=== PATIENT | male | born 1965 | race Caucasian/White ===

== ENCOUNTER 2022-12-06 10:45 | Emergency (ER) | payer OTHER, SELFPAY ==
[2022-12-06 10:50] VITALS: BP 162/84; PULSE 58; RESP 22; TEMP 36.4; O2SAT 97; BMI 36.9
--- NOTE | 2022-12-06 11:00 | PC.NURSE ---
Pain, redness and slight swelling to left lower leg. Patient denies injury to area and states it's been hurting for a few days and yesterday I was standing for long periods at football games .
--- NOTE | 2022-12-06 11:04 | US_ITS ---
The [address] [address] Patient Name: ALMA MULLEN MRN: [id number] date: 1965 Sex: M Assigned Patient Location: ER Current Patient Location: .[facility] Accession/Order Number: [id number] Exam Date: 12/06/2022 11:35 Report Date: 12/06/2022 12:27 At the request of: KAREN STEELE Procedure: US venous doppler LE LT LEFT LOWER EXTREMITY DEEP VENOUS ULTRASOUND WITH DOPPLER IMAGING CLINICAL HISTORY: Leg pain or tenderness. COMPARISON: None TECHNIQUE: Singh scale with compression maneuvers, Color Doppler and Spectral Doppler at rest and with augmentation of the left distal external iliac, common femoral, femoral and popliteal veins was performed. Edwards scale with compression maneuvers of the peroneal and posterior tibial veins was performed. The great and small saphenous veins were imaged in edwards scale with compression maneuvers at their insertion to the deep system. The contralateral external iliac vein and common femoral vein were imaged for comparison. Images were obtained and stored in a permanent archive. RESULT: LEFT LOWER EXTREMITY PROXIMAL DEEP VEINS Distal External Iliac and Common Femoral Veins: Compression: Normal Doppler: Normal, spontaneous respirophasic flow Normal response to augmentation Femoral vein: Compression: Normal Doppler: Normal, spontaneous flow Normal response to augmentation Popliteal vein: Compression: Normal Doppler: Normal, spontaneous flow Normal response to augmentation CALF DEEP VEINS Peroneal veins: Normal compression Posterior tibial veins: Normal compression Gastrocnemius and Soleal veins: Not imaged SUPERFICIAL VEINS Great saphenous: Patent and compressible at insertion into common femoral vein; not otherwise assessed. Small Saphenous: Patent and compressible in the proximal calf, not otherwise assessed. RIGHT LOWER EXTREMITY Distal External Iliac and Common Femoral Veins: Compression: Normal Doppler: Normal, spontaneous respirophasic flow Normal response to augmentation US/US venous doppler LE LT IMPRESSION: NEGATIVE STUDY FOR ACUTE PROXIMAL DVT IN THE LEFT LOWER EXTREMITY. NEGATIVE STUDY FOR ACUTE CALF DVT IN THE LEFT LOWER EXTREMITY. NEGATIVE STUDY FOR SUPERFICIAL THROMBOPHLEBITIS IN THE LEFT LOWER EXTREMITY Electronically authenticated by: MITCH JOHNSON Date: 12/06/2022 12:27
--- NOTE | 2022-12-06 11:05 | ED.SKABFB1 ---
HPI - Skin/Abscess/Foreign Bdy General Chief complaint: Skin/Abscess/Foreign Body Stated complaint: L LEG THINKS CELLULITIS Time Seen by Provider: 12/06/22 10:59 Source: patient Mode of arrival: walk-in Limitations: no limitations History of Present Illness HPI narrative: 57-year-old male presents for redness and swelling to his left lower leg that he's had for a few days. No injury. His is worried about a blood clot or cellulitis. He's never had a deep vein thrombosis. No chest pain or shortness of breath or fever. He recalls no injury. Related Data Previous Rx's Medication Instructions Recorded amoxicillin 875 mg-potassium 1 tab PO BID #20 tabs 12/06/22 clavulanate 125 mg tablet Allergies Allergy/AdvReac Type Severity Reaction Status Date / Time No Known Drug Allergies Allergy Verified 12/06/22 10:54 Review of Systems ROS Narrative A ten point review of systems is negative except as noted above. PFSH PFSH Social History Smoking status: Light tobacco smoker Exam Narrative Exam Narrative: Nurses note and vital signs reviewed and patient is not hypoxic. General: The patient appears well and in no apparent distress. Patient is resting comfortably on cart. Skin: Warm, dry, no pallor noted. There is no rash noted. Head: Normocephalic, atraumatic Eye: Normal conjunctiva, no drainage Ears, Nose, Mouth, and Throat: oral mucosa is moist. Nares patent. Cardiovascular: Regular Rate and Rhythm Respiratory: Patient is in no distress, no accessory muscle use, lungs are clear to auscultation, no wheezing, rales or rhonchi Back: non-tender GI: soft and nontender Musculoskeletal: he has erythema and mild swelling to the left lower leg distally and anteriorly. He doesn't seem to have any calf tenderness. He has two very small breaks in the skin on the anterior left lower leg as well. He does not know how those happened. No redness or swelling to the right leg. Neurological: A&O, normal speech Psychiatric: Cooperative Constitutional Vital Signs, click to edit/add: Last Vital Signs Temp 97.5 F L 12/06/22 10:50 Pulse 58 L 12/06/22 10:50 Resp 22 12/06/22 10:50 BP 162/84 H 12/06/22 10:50 Pulse Ox 97 12/06/22 10:50 O2 Del Method Room Air 12/06/22 10:50 Course Vital Signs Vital signs: Vital Signs Temperature 97.5 F L 12/06/22 10:50 Pulse Rate 58 L 12/06/22 10:50 Respiratory Rate 22 12/06/22 10:50 Blood Pressure 162/84 H 12/06/22 10:50 Pulse Oximetry 97 12/06/22 10:50 Oxygen Delivery Method Room Air 12/06/22 10:50 Temperature 97.5 F L 12/06/22 10:50 Pulse Rate 58 L 12/06/22 10:50 Respiratory Rate 22 12/06/22 10:50 Blood Pressure 162/84 H 12/06/22 10:50 Pulse Oximetry 97 12/06/22 10:50 Oxygen Delivery Method Room Air 12/06/22 10:50 MDM - Skin/Abscess/Foreign Bdy MDM Narrative Medical decision making narrative: Doppler is negative and blood work is unremarkable. He is given IV Ancef and prescribed Augmentin. My clinical impressions that he has cellulitis. Follow-up with PCP. Treatment diagnosis and follow up are discussed with the patient and his . Differential Diagnosis Differential diagnosis: Likely other (deep vein thrombosis, cellulitis) Lab Data Attestation: I reviewed the patient's lab results. Labs: Lab Results 12/06/22 Range/Units 11:10 WBC 6.9 (4.0-11.0) 10^3/uL RBC 4.27 L (4.70-6.10) 10^6/uL Hgb 14.6 (14.0-18.0) g/dL Hct 42.9 (42.0-54.0) % MCV 100.5 H (80.0-94.0) fL MCH 34.2 H (25.9-34.0) pg MCHC 34.0 (29.9-35.2) g/dL RDW 12.8 (11.0-15.0) % Plt Count 281 (150-450) 10^3/uL MPV 10.6 (9.5-13.5) fL Neut % (Auto) 60.7 (43.0-75.0) % Lymph % (Auto) 22.9 (20.5-60.0) % [place] % (Auto) 11.2 (1.7-12.0) % Eos % (Auto) 4.3 (0.9-7.0) % Baso % (Auto) 0.6 (0.2-2.0) % Neut # (Auto) 4.2 (1.4-6.5) 10^3/uL Lymph # (Auto) 1.6 (1.2-3.8) 10^3/uL [place] # (Auto) 0.8 (0.3-0.8) 10^3/uL Eos # (Auto) 0.3 (0.0-0.7) 10^3/uL Baso # (Auto) 0.0 (0.0-0.1) 10^3/uL Abs Immat Gran (auto) 0.02 (0.00-0.03) 10^3/uL Imm/Tot Granulo (auto) 0.3 (0.0-0.5) % Sodium 137 (136-145) mmol/L Potassium 4.5 (3.5-5.1) mmol/L Chloride 102 (98-107) mmol/L Carbon Dioxide 27.0 (21.0-32.0) mmol/L Anion Gap 12.5 BUN 17.0 (7.0-18.0) mg/dL Creatinine 0.97 (0.70-1.30) mg/dL Est GFR ( Amer) >60 (>=60) Est GFR (Non-Af Amer) >60 (>=60) BUN/Creatinine Ratio 17.5 Glucose 123 H (74-106) mg/dL Calcium 8.5 (8.5-10.1) mg/dL Discharge Plan Discharge Chief Complaint: Skin/Abscess/Foreign Body Clinical Impression: Cellulitis Patient Disposition: Home, Self-Care Time of Disposition Decision: 12:22 Condition: Good Mode of Transportation: Private Vehicle Prescriptions / Home Meds: New amoxicillin-pot clavulanate 875-125 mg tablet 1 tab PO BID Qty: 20 0RF Instructions: Cellulitis (ED) Stand Alone Forms: Portal Instructions Referrals: Feliciano Renteria MD [Primary Care Provider] - 1 week
[2022-12-06 11:27] LABS: Basophils Percent Auto 0.6 % (0.2-2.0); Eosinophils Absolute Auto 0.3 10^3/uL (0.0-0.7); Eosinophils Percent Auto 4.3 % (0.9-7.0); Hematocrit 42.9 % (42.0-54.0); Hemoglobin 14.6 g/dL (14.0-18.0); Immature Granulocytes Abs Auto 0.02 10^3/uL (0.00-0.03); Immature Granulocytes Pct Auto 0.3 % (0.0-0.5); Lymphocytes Absolute Auto 1.6 10^3/uL (1.2-3.8); Lymphocytes Percent Auto 22.9 % (20.5-60.0); Mean Corpuscular Hemoglobin 34.2 pg (25.9-34.0); Mean Corpuscular Volume 100.5 fL (80.0-94.0); Mean Platelet Volume 10.6 fL (9.5-13.5); Monocytes Absolute Auto 0.8 10^3/uL (0.3-0.8); Monocytes Percent Auto 11.2 % (1.7-12.0); Neutrophils Absolute Auto 4.2 10^3/uL (1.4-6.5); Neutrophils Percent Auto 60.7 % (43.0-75.0); Platelet Count 281 10^3/uL (150-450); Red Blood Count 4.27 10^6/uL (4.70-6.10); Red Cell Distribution Width 12.8 % (11.0-15.0); White Blood Count 6.9 10^3/uL (4.0-11.0)
[2022-12-06 11:30] LABS: Anion Gap 12.5; BUN Creatinine Ratio 17.5; Calcium 8.5 mg/dL (8.5-10.1); Chloride 102 mmol/L (98-107); Estimated GFR (African America >60 (>=60); Estimated GFR (Non-African Ame >60 (>=60); Glucose 123 mg/dL (74-106); Potassium 4.5 mmol/L (3.5-5.1); Sodium 137 mmol/L (136-145)
[2022-12-06] MEDS: CEFAZOLIN SODIUM/DEXTROSE,ISO 1 GM/50 ML IV.SOLN IV (12:24)
== END 2022-12-06 13:06 | disposition home or self-care (01) ==
PROVIDERS: Emergency Provider Emergency Medicine; PCP Family Medicine
DX: L03.116 Cellulitis of left lower limb (principal); F17.210 Nicotine dependence, cigarettes, uncomplicated
CPT/HCPCS: 36415; 80048; 85025; 93971; 96365; 99285

== ENCOUNTER 2022-12-28 15:28 | Outpatient (OUT) | payer OTHER, SELFPAY ==
[2022-12-28 15:59] LABS: Basophils Percent Auto 0.2 % (0.2-2.0); Hematocrit 45.6 % (42.0-54.0); Hemoglobin 15.8 g/dL (14.0-18.0); Immature Granulocytes Abs Auto 0.06 10^3/uL (0.00-0.03); Immature Granulocytes Pct Auto 0.5 % (0.0-0.5); Lymphocytes Absolute Auto 1.1 10^3/uL (1.2-3.8); Lymphocytes Percent Auto 8.8 % (20.5-60.0); Mean Corpuscular HGB Conc 34.6 g/dL (29.9-35.2); Mean Corpuscular Hemoglobin 33.8 pg (25.9-34.0); Mean Corpuscular Volume 97.4 fL (80.0-94.0); Mean Platelet Volume 10.8 fL (9.5-13.5); Monocytes Absolute Auto 0.8 10^3/uL (0.3-0.8); Monocytes Percent Auto 5.9 % (1.7-12.0); Neutrophils Absolute Auto 10.8 10^3/uL (1.4-6.5); Neutrophils Percent Auto 84.6 % (43.0-75.0); Platelet Count 312 10^3/uL (150-450); Red Blood Count 4.68 10^6/uL (4.70-6.10); Red Cell Distribution Width 12.5 % (11.0-15.0); White Blood Count 12.8 10^3/uL (4.0-11.0)
[2022-12-28 16:00] LABS: Estimated Average Glucose 126 mg/dL
[2022-12-28 16:33] LABS: Alanine Aminotransferase 53 U/L (16-63); Albumin Globulin Ratio 1.1; Alkaline Phosphatase 60 U/L (46-116); Anion Gap 17.4; Aspartate Amino Transferase 21 U/L (15-37); Bilirubin Total 0.6 mg/dL (0.2-1.0); Calcium 9.3 mg/dL (8.5-10.1); Carbon Dioxide 23.3 mmol/L (21.0-32.0); Chloride 101 mmol/L (98-107); Estimated GFR (African America >60 (>=60); Estimated GFR (Non-African Ame >60 (>=60); Globulin 3.5 g/dL; Glucose 136 mg/dL (74-106); Potassium 4.7 mmol/L (3.5-5.1); Sodium 137 mmol/L (136-145); Thyroid Stimulating Hormone 1.393 uIU/mL (0.358-3.740); Total Protein 7.5 g/dL (6.4-8.2)
[2022-12-29 11:11] LABS: Insulin 15.8 uIU/mL (2.6-24.9)
== END 2022-12-28 15:29 | disposition home or self-care (01) ==
LOC: LAB 15:29
PROVIDERS: PCP Family Medicine; Visit Provider Family Medicine
DX: R53.83 Other fatigue (principal)
CPT/HCPCS: 36415; 80053; 83036; 83525; 84436; 84443; 84481; 85025

== ENCOUNTER 2023-01-08 07:18 | Outpatient (OUT) | payer OTHER, SELFPAY ==
[2023-01-08 07:40] LABS: Basophils Absolute Auto 0.1 10^3/uL (0.0-0.1); Basophils Percent Auto 0.5 % (0.2-2.0); Eosinophils Absolute Auto 0.1 10^3/uL (0.0-0.7); Hematocrit 47.7 % (42.0-54.0); Hemoglobin 16.1 g/dL (14.0-18.0); Immature Granulocytes Abs Auto 0.13 10^3/uL (0.00-0.03); Lymphocytes Absolute Auto 2.2 10^3/uL (1.2-3.8); Lymphocytes Percent Auto 16.9 % (20.5-60.0); Mean Corpuscular HGB Conc 33.8 g/dL (29.9-35.2); Mean Corpuscular Hemoglobin 33.6 pg (25.9-34.0); Mean Corpuscular Volume 99.6 fL (80.0-94.0); Mean Platelet Volume 10.5 fL (9.5-13.5); Monocytes Absolute Auto 1.1 10^3/uL (0.3-0.8); Monocytes Percent Auto 8.8 % (1.7-12.0); Neutrophils Absolute Auto 9.3 10^3/uL (1.4-6.5); Neutrophils Percent Auto 71.8 % (43.0-75.0); Platelet Count 281 10^3/uL (150-450); Red Blood Count 4.79 10^6/uL (4.70-6.10); Red Cell Distribution Width 12.4 % (11.0-15.0); White Blood Count 12.9 10^3/uL (4.0-11.0)
[2023-01-08 07:45] LABS: Erythrocyte Sedimentation Rate 17 mm/hr (<=20)
[2023-01-08 08:19] LABS: Mono Screen NEGATIVE (NEGATIVE)
[2023-01-08 08:38] LABS: Alanine Aminotransferase 47 U/L (16-63); Albumin Globulin Ratio 1.1; Albumin Level 3.5 g/dL (3.4-5.0); Alkaline Phosphatase 45 U/L (46-116); Aspartate Amino Transferase 21 U/L (15-37); Bilirubin Total 1.2 mg/dL (0.2-1.0); Calcium 8.8 mg/dL (8.5-10.1); Carbon Dioxide 24.7 mmol/L (21.0-32.0); Chloride 102 mmol/L (98-107); Estimated GFR (African America >60 (>=60); Estimated GFR (Non-African Ame >60 (>=60); Globulin 3.2 g/dL; Glucose 81 mg/dL (74-106); Potassium 4.7 mmol/L (3.5-5.1); Sodium 137 mmol/L (136-145); Total Protein 6.7 g/dL (6.4-8.2)
[2023-01-11 16:09] LABS: EBV Ab VCA, IgM <36.0 U/mL (0.0-35.9)
== END 2023-01-08 07:19 | disposition home or self-care (01) ==
LOC: LAB 07:20
PROVIDERS: PCP Family Medicine; Visit Provider Family Medicine
DX: R53.83 Other fatigue (principal)
CPT/HCPCS: 36415; 80053; 85025; 85652; 86308

== ENCOUNTER 2023-01-18 15:50 | Outpatient (OUT) | payer OTHER, SELFPAY ==
[2023-01-20 08:15] LABS: Testosterone 249 ng/dL (264-916)
== END 2023-01-18 15:51 | disposition home or self-care (01) ==
LOC: LAB 15:50
PROVIDERS: PCP Family Medicine; Visit Provider Family Medicine
DX: R42 Dizziness and giddiness (principal)
CPT/HCPCS: 36415; 84403

== ENCOUNTER 2023-01-20 10:52 | Outpatient (OUT) | payer OTHER, SELFPAY ==
[2023-01-21 04:10] LABS: Testosterone 170 ng/dL (264-916)
== END 2023-01-20 10:53 | disposition home or self-care (01) ==
LOC: LAB 10:53
PROVIDERS: PCP Family Medicine; Visit Provider Family Medicine
DX: R53.83 Other fatigue (principal)
CPT/HCPCS: 36415; 84403

== ENCOUNTER 2023-02-02 06:13 | Outpatient (OUT) | payer OTHER, SELFPAY ==
--- NOTE | 2023-02-02 06:59 | MR_ITS ---
The [address] [address] Patient Name: ALMA MULLEN MRN: [id number] date: 1965 Sex: M Assigned Patient Location: MRI Current Patient Location: MRI Accession/Order Number: [id number] Exam Date: 02/02/2023 07:05 Report Date: 02/02/2023 08:21 At the request of: PAIGE KRAUSE Procedure: MR head/brain wo con EXAMINATION: MR head/brain wo con HISTORY: vertigo COMPARISON: No relevant comparison available. TECHNIQUE: A variety of imaging planes and parameters were utilized for visualization of suspected pathology. Images were performed without contrast. FINDINGS: CEREBRUM: No edema, hemorrhage, mass, acute infarction, or inappropriate atrophy. CEREBELLUM: No edema, hemorrhage, mass, acute infarction, or inappropriate atrophy. BRAINSTEM: No edema, hemorrhage, mass, acute infarction, or inappropriate atrophy. CSF SPACES: Ventricles, cisterns, and sulci are appropriate for age. No hydrocephalus, subarachnoid hemorrhage, or mass. SKULL: No mass or other significant visible lesion. SINUSES: Limited views demonstrate no significant mucosal thickening or fluid. ORBITS: Limited views are unremarkable. OTHER: Negative. MR/MR head/brain wo con IMPRESSION: 1. No abnormal findings of the brain to account for patient's symptoms. 2. No appreciable fluid or soft tissue within the middle ear or mastoid air cells. Electronically authenticated by: ALMA CAVAZOS Date: 02/02/2023 08:21
== END 2023-02-02 06:14 | disposition home or self-care (01) ==
LOC: MRI 06:14
PROVIDERS: PCP Family Medicine; Visit Provider Family Medicine
DX: R42 Dizziness and giddiness (principal)
CPT/HCPCS: 70551

== ENCOUNTER 2023-03-06 19:57 | Emergency (ER) | payer SELFPAY ==
[2023-03-06 20:01] VITALS: BP 134/87; PULSE 84; RESP 18; TEMP 37.1; O2SAT 96; BMI 33.5
--- OUTSIDE RECORDS SUMMARY | 2023-03-06 20:04 | XMS_ITS | CCD ---
Author Name Unknown Address [address] [place] [address] Organization [facility] Care Team Providers Care Elastic Attacher Coverstitch Name Role Phone PAIGE RENTERIA Primary Care Unavailable KAREN STEELE Admitting Unavailable KAREN STEELE Attending Unavailable KARMA ACOSTA Consulting Unavailable OMKAR BUSBY Consulting Unavailable PAIGE RENTERIA Admitting Unavailable PAIGE RENTERIA Attending Unavailable PAIGE RENTERIA Consulting Unavailable Results Test Name Value Interpretation Reference Range Facility CBC AUTO DIFFon 05-25-2022 BASO # 0.0 103/ul Normal 0.0-0.[address] [facility] Comment on above: Performed By: #### C BC #### [facility] [address] [place] [address] Dr. Cheng Dinero Basophils/100 WBC (Bld) 0.4 % Normal 0.2-2.[address] [facility] Comment on above: Performed By: #### C BC #### [facility] [address] [place] [address] Dr. Cheng Dinero EO # 0.1 103/ul Normal 0.0-0.7 [facility] Comment on above: Performed By: #### C BC #### [facility] [address] [address] [address] Cheng Dinero Eosinophils/100 WBC (Bld) 1.0 % Normal 0.9-7.0 [facility] Comment on above: Performed By: #### C BC #### [facility] [address] [place] [address] Dr. Cheng Dinero Erythrocyte distribution width (RBC) [Ratio] 12.7 % Normal 11.0-15.[address] [facility] Comment on above: Performed By: #### C BC #### [facility] [address] [place] [address] Dr. Cheng Dinero Hematocrit (Bld) [Volume fraction] 42.7 % Normal 42.0-54.[address] [facility] Comment on above: Performed By: #### C BC #### [facility] [address] [place] [address] Dr. Cheng Dinero Hemoglobin (Bld) [Mass/Vol] 14.8 g/dL Normal 14.0-18.0 [facility] Comment on above: Performed By: #### C BC #### [facility] [address] [place] [address] Dr. Cheng Dinero IG # 0.03 10e3/ul Normal 0.00-0.[address] [facility] Comment on above: Performed By: #### C BC #### [facility] [address] [place] [address] Dr. Cheng Dinero IG % 0.4 % Normal 0.0-0.[address] [facility] Comment on above: Performed By: #### C BC #### [facility] [address] [place] [address] Dr. Cehng Dinero LYMPH # 1.2 103/ul Normal 1.2-3.8 [facility] Comment on above: Performed By: #### C BC #### [facility] [address] [place] [address] Dr. Cheng Dinero Lymphocytes/100 WBC (Bld) 16.1 % Critically low 20.5-60.[address] [facility] Comment on above: Performed By: #### C BC #### [facility] [address] [place] [address] Dr. Cheng Dinero MANUAL DIFF REQ NO Normal [facility] Comment on above: Performed By: #### C BC #### [facility] [address] [place] [address] Dr. Cheng Dinero MCH (RBC) [Entitic mass] 32.9 pg Normal 25.9-34.[address] [facility] Comment on above: Performed By: #### C BC #### [facility] [address] [place] [address] Dr. Cheng Dinero MCHC (RBC) [Mass/Vol] 34.7 g/dL Normal 29.9-35.[address] [facility] Comment on above: Performed By: #### C BC #### [facility] [address] [place] [address] Dr. Cheng Dinero MCV (RBC) [Entitic vol] 94.9 fL Critically high 80.0-94.[address] [facility] Comment on above: Performed By: #### C BC #### [facility] [address] [address] [address] Cheng Dinero MONO # 0.7 103/ul Normal 0.3-0.[address] [facility] Comment on above: Performed By: #### C BC #### [facility] [address] [place] [address] Dr. Cheng Dinero Monocytes/100 WBC (Bld) 10.4 % Normal 1.7-12.[address] [facility] Comment on above: Performed By: #### C BC #### [facility] [address] [place] [address] Dr. Cheng Dinero NEUT # 5.1 103/ul Normal 1.4-6.[address] [facility] Comment on above: Performed By: #### C BC #### [facility] [address] [place] [address] Dr. Cheng Dinero Neutrophils/100 WBC (Bld) 71.7 % Normal 43.0-75.[address] [facility] Comment on above: Performed By: #### C BC #### [facility] [address] [place] [address] Dr. Cheng Dinero Platelet mean volume (Bld) [Entitic vol] 10.2 fL Normal 9.5-13.5 [facility] Comment on above: Performed By: #### C BC #### [facility] [address] [place] [address] Dr. Cheng Dinero PLT 254 103/ul Normal 150-450 [facility] Comment on above: Performed By: #### C BC #### [facility] [address] [place] [address] Dr. Cheng Dinero RBC 4.50 106/ul Critically low 4.70-6.10 [facility] Comment on above: Performed By: #### C BC #### [facility] [address] [place] [address] Dr. Cheng Dinero WBC 7.1 103/ul Normal 4.0-11.[address] [facility] Comment on above: Performed By: #### C BC #### [facility] [address] [place] [address] Dr. Cheng Dinero PROF CHEM 8 (BAS METB)on Anion gap [Moles/Vol] 13.0 mmol/L Normal [facility] Comment on above: Performed By: #### B MP #### [facility] [address] [place] [address] Dr. Cheng Dinero Calcium [Mass/Vol] 8.6 mg/dL Normal 8.5-10.1 [facility] Comment on above: Performed By: #### B MP #### [facility] [address] [place] [address] Dr. Cheng Dinero Chloride [Moles/Vol] 102 mmol/L Normal 98-[address] [facility] Comment on above: Performed By: #### B MP #### [facility] [address] [place] [address] Dr. Cheng Dinero CO2 [Moles/Vol] 26.7 mmol/L Normal 21.0-32.0 [facility] Comment on above: Performed By: #### B MP #### [facility] [address] [place] [address] Dr. Cheng Dinero Creatinine [Mass/Vol] 1.18 mg/dL Normal 0.70-1.[address] [facility] Comment on above: Performed By: #### B MP #### [facility] [address] [place] [address] Dr. Cheng Dinero EGFR-AF ZAMBIAN >60 Normal >=60 [facility] Comment on above: Performed By: #### B MP #### [facility] [address] [place] [address] Dr. Cheng Dinero EGFR-NON AF ZAMBIAN >60 Normal >=[address] [facility] Comment on above: Performed By: #### B MP #### [facility] [address] [address] [address] Cheng Dinero Glucose [Mass/Vol] 156 mg/dL Critically high 74-106 [facility] Comment on above: Performed By: #### B MP #### [facility] [address] [address] [address] Cheng Dinero Potassium [Moles/Vol] 4.7 mmol/L Normal 3.5-5.[address] [facility] Comment on above: Performed By: #### B MP #### [facility] [address] [address] [address] Cheng Dinero Sodium [Moles/Vol] 137 mmol/L Normal 136-145 [facility] Comment on above: Performed By: #### B MP #### [facility] [address] [address] [address] Cheng Dinero Urea nitrogen [Mass/Vol] 24.0 mg/dL Critically high 7.0-18.[address] [facility] Comment on above: Performed By: #### B MP #### [facility] [address] [address] [address] Cheng Dinero Urea nitrogen/Creatinine [Mass ratio] 20.3 mg/mg Normal [facility] Comment on above: Performed By: #### B MP #### [facility] [address] [address] [address] Cheng Dinero XR FOREARM LT 2 VIEWSon 05-09 XR FOREARM LT 2 VIEWS EXAM: XR FOREARM L T 2 VIEWS HISTORY: Traumatic AND/OR non-traumatic injury COMPARISON: None. TECHNIQUE: Frontal and lateral views of the left forearm FINDINGS/ IMPRESSION: 1. Normal mineralization. 2. No acute fractures or dislocations. Old ulnar styloid process fracture. 3. Mild degenerative changes at the DRUJ with subchondral cystic change of the distal ulna. Additional degenerative changes of the first CMC joint. 4. Common extensor origin enthesophytosis at the elbow. Electronically authenticated by: KARMA ACOSTA Date: 2022-05-25 17:[address] [facility] INSULINon 04-16-2022 Insulin 10.4 uIU/mL Normal 2.6-24.9 [facility] Comment on above: Performed By: #### I NSULIN #### [facility] [address] [place] [address] Dr. Cheng Dinero BNPon 04-15-2022 Natriuretic peptide B (Bld) [Mass/Vol] 21.0 pg/mL Normal <=900.0 [facility] Comment on above: Performed By: #### C MP, BNP, LIPID, T7, TSH ####[facility] [address] [address]Dr. Cheng Dinero CBC AUTO DIFFon 04-15-2022 BASO # 0.1 103/ul Normal 0.0-0.[address] [facility] Comment on above: Performed By: #### C BC #### [facility] [address] [place] [address] Dr. Cheng Dinero Basophils/100 WBC (Bld) 0.5 % Normal 0.2-2.[address] [facility] Comment on above: Performed By: #### C BC #### [facility] [address] [place] [address] Dr. Cheng Dinero EO # 0.2 103/ul Normal 0.0-0.7 [facility] Comment on above: Performed By: #### C BC #### [facility] [address] [place] [address] Dr. Cheng Dinero Eosinophils/100 WBC (Bld) 1.7 % Normal 0.9-7.0 [facility] Comment on above: Performed By: #### C BC #### [facility] [address] [place] [address] Dr. Cheng Dinero Erythrocyte distribution width (RBC) [Ratio] 11.9 % Normal 11.0-15.0 [facility] Comment on above: Performed By: #### C BC #### [facility] [address] [place] [address] Dr. Cheng Dinero Hematocrit (Bld) [Volume fraction] 44.2 % Normal 42.0-54.0 [facility] Comment on above: Performed By: #### C BC #### [facility] [address] [address] [address] Cheng Dinero Hemoglobin (Bld) [Mass/Vol] 15.3 g/dL Normal 14.0-18.[address] [facility] Comment on above: Performed By: #### C BC #### [facility] [address] [address] [address] Cheng Dinero IG # 0.08 10e3/ul Critically high 0.00-0.03 [facility] Comment on above: Performed By: #### C BC #### [facility] [address] [address] [address] Cheng Dinero IG % 0.7 % Critically high 0.0-0.5 [facility] Comment on above: Performed By: #### C BC #### [facility] [address] [place] [address] Dr. Cheng Dinero LYMPH # 2.6 103/ul Normal 1.2-3.8 [facility] Comment on above: Performed By: #### C BC #### [facility] [address] [place] [address] Dr. Chneg Dinero Lymphocytes/100 WBC (Bld) 23.2 % Normal 20.5-60.[address] [facility] Comment on above: Performed By: #### C BC #### [facility] [address] [place] [address] Dr. Cheng Dinero MANUAL DIFF REQ NO Normal [facility] Comment on above: Performed By: #### C BC #### [facility] [address] [place] [address] Dr. Cheng Dinero MCH (RBC) [Entitic mass] 32.8 pg Normal 25.9-34.[address] [facility] Comment on above: Performed By: #### C BC #### [facility] [address] [place] [address] Dr. Cheng Dinero MCHC (RBC) [Mass/Vol] 34.6 g/dL Normal 29.9-35.2 [facility] Comment on above: Performed By: #### C BC #### [facility] [address] [address] [address] Cheng Dinero MCV (RBC) [Entitic vol] 94.8 fL Critically high 80.0-94.[address] [facility] Comment on above: Performed By: #### C BC #### [facility] [address] [place] [address] Dr. Cheng Dinero MONO # 1.0 103/ul Critically high 0.3-0.8 [facility] Comment on above: Performed By: #### C BC #### [facility] [address] [place] [address] Dr. Cheng Dinero Monocytes/100 WBC (Bld) 9.1 % Normal 1.7-12.0 [facility] Comment on above: Performed By: #### C BC #### [facility] [address] [place] [address] Dr. Cheng Dinero NEUT # 7.2 103/ul Critically high 1.4-6.5 [facility] Comment on above: Performed By: #### C BC #### [facility] [address] [place] [address] Dr. Cheng Dinero Neutrophils/100 WBC (Bld) 64.8 % Normal 43.0-75.0 [facility] Comment on above: Performed By: #### C BC #### [facility] [address] [place] [address] Dr. Cheng Dinero Platelet mean volume (Bld) [Entitic vol] 10.4 fL Normal 9.5-13.5 [facility] Comment on above: Performed By: #### C BC #### [facility] [address] [place] [address] Dr. Cheng Dinero PLT 294 103/ul Normal 150-450 [facility] Comment on above: Performed By: #### C BC #### [facility] [address] [place] [address] Dr. Cheng Dinero RBC 4.66 106/ul Critically low 4.70-6.10 [facility] Comment on above: Performed By: #### C BC #### [facility] [address] [place] [address] Dr. Cheng Dinero WBC 11.0 103/ul Normal 4.0-11.[address] [facility] Comment on above: Performed By: #### C BC #### [facility] [address] [place] [address] Dr. Cheng Dinero FREE THYROXINE INDEX T7on FTI 3.16 Normal 1.30-4.[address] [facility] Comment on above: Performed By: #### C MP, BNP, LIPID, T7, TSH #### [facility] [address] [place] [address] Dr. Cheng Dinero T3U 40.0 % Normal 33.0-40.[address] [facility] Comment on above: Performed By: #### C MP, BNP, LIPID, T7, TSH #### [facility] [address] [place] [address] Dr. Cheng Dinero T4 [Mass/Vol] 7.90 ug/dL Normal 4.50-12.10 [facility] Comment on above: Performed By: #### C MP, BNP, LIPID, T7, TSH #### [facility] [address] [place] [address] Dr. Cheng Dinero GLYCOHEMOGLOBIN A1Con 2022 ADA RECOMMENDATION SEE BELOW Normal [facility] Comment on above: Result Comment: ADA RECOMMENDED LIMIT 4.0 - 6.0 ADA THERAPEUTIC TARGET < 7.0 ACTION SUGGESTED > 7.0 Performed By: #### A 1C #### [facility] [address] [place] [address] Dr. Cheng Dinero Glucose [Mass/Vol] 183 mg/dL Normal [facility] Comment on above: Performed By: #### A 1C #### [facility] [address] [place] [address] Dr. Cheng Dinero HbA1c (Bld) [Mass fraction] 8.0 % Critically high 4.5-6.[address] [facility] Comment on above: Performed By: #### A 1C #### [facility] [address] [place] [address] Dr. Cheng Dinero IRONon 04-15-2022 Iron [Mass/Vol] 228.0 ug/dL Critically high 65.0-175.[address] [facility] Comment on above: Performed By: #### P SASC, VITAD, IRON #### [facility] [address] [place], [place] [address] Dr. Cheng Dinero LIPID PROFILEon 04-15-2022 CHOL-HDL RATIO NORM SEE BELOW Normal [facility] Comment on above: Result Comment: 3.3 - 4.4 LOW RISK 4.4 - 7.1 AVERAGE RISK 7.1 - 11.0 MODERATE RISK >11.0 HIGH RISK Performed By: #### C MP, BNP, LIPID, T7, TSH ####[facility] [address] [id number]. Cheng Dinero Cholesterol [Mass/Vol] 169 mg/dL Normal <=[address] [facility] Comment on above: Performed By: #### C MP, BNP, LIPID, T7, TSH ####[facility] [address] [id number]. Cheng Dinero Cholesterol in HDL [Mass/Vol] 47 mg/dL Normal 40-[address] [facility] Comment on above: Performed By: #### C MP, BNP, LIPID, T7, TSH ####[facility] [address] [address]Dr. Cheng Dinero Cholesterol in LDL [Mass/Vol] 102.6 mg/dL Normal [facility] Comment on above: Performed By: #### C MP, BNP, LIPID, T7, TSH ####[facility] [address] [id number]. Cheng Dinero Cholesterol.total/Cho lesterol in HDL [Mass ratio] 3.6 {ratio} Normal [facility] Comment on above: Performed By: #### C MP, BNP, LIPID, T7, TSH ####[facility] [address] [id number]. Cheng Dinero HDL NORMAL > or = 60 mg/dl - LO W CARDIOVASCULAR RISK <40 mg/dl - HIGH CARDIOVASCULAR RISK Normal [facility] Comment on above: Performed By: #### C MP, BNP, LIPID, T7, TSH ####[facility] [address] [address]Dr. Cheng Dinero LDL CALC NORMAL SEE BELOW Normal [facility] Comment on above: Result Comment: <100 mg/dl OPTIMAL 100 - 129 mg/dl NEAR OR ABOVE OPTIMAL 130 - 159 mg/dl BORDERLINE HIGH 160 - 189 mg/dl HIGH >190 mg/dl VERY HIGH Performed By: #### C MP, BNP, LIPID, T7, TSH ####[facility] [address] [address]Dr. Cheng Dinero Triglyceride [Mass/Vol] 97 mg/dL Normal <=[address] [facility] Comment on above: Performed By: #### C MP, BNP, LIPID, T7, TSH ####[facility] [address] [address]Dr. Cheng Dinero VLDL CALC 19.4 mg/dL Normal [facility] Comment on above: Performed By: #### C MP, BNP, LIPID, T7, TSH ####[facility] [address] [address]Dr. Cheng Dinero PROF 14(COMP METB)on 023 Albumin [Mass/Vol] 3.5 g/dL Normal 3.4-5.0 [facility] Comment on above: Performed By: #### C MP, BNP, LIPID, T7, TSH ####[facility] [address] [address]Dr. Cheng Dinero Albumin/Globulin [Mass ratio] 1.2 {ratio} Normal [facility] Comment on above: Performed By: #### C MP, BNP, LIPID, T7, TSH ####[facility] [address] [address]Dr. Cheng Dinero ALP [Catalytic activity/Vol] 64 U/L Normal 46-116 [facility] Comment on above: Performed By: #### C MP, BNP, LIPID, T7, TSH ####[facility] [address] [address]Dr. Cheng Dinero ALT [Catalytic activity/Vol] 54 U/L Normal 16-[address] [facility] Comment on above: Performed By: #### C MP, BNP, LIPID, T7, TSH ####[facility] [address] [address]Dr. Cheng Dinero Anion gap [Moles/Vol] 9.8 mmol/L Normal [facility] Comment on above: Performed By: #### C MP, BNP, LIPID, T7, TSH ####[facility] [address] [address]Dr. Cheng Dinero AST [Catalytic activity/Vol] 22 U/L Normal 15-37 [facility] Comment on above: Performed By: #### C MP, BNP, LIPID, T7, TSH ####[facility] [address] [address]Dr. Cheng Dinero Bilirubin [Mass/Vol] 0.7 mg/dL Normal 0.2-1.[address] [facility] Comment on above: Performed By: #### C MP, BNP, LIPID, T7, TSH ####[facility] [address] [address]Dr. Cheng Dinero Calcium [Mass/Vol] 8.9 mg/dL Normal 8.5-10.1 [facility] Comment on above: Performed By: #### C MP, BNP, LIPID, T7, TSH ####[facility] [address] [address]Dr. Cheng Dinero Chloride [Moles/Vol] 102 mmol/L Normal 98-[address] [facility] Comment on above: Performed By: #### C MP, BNP, LIPID, T7, TSH ####[facility] [address] [address]Dr. Cheng Dinero CO2 [Moles/Vol] 27.9 mmol/L Normal 21.0-32.0 [facility] Comment on above: Performed By: #### C MP, BNP, LIPID, T7, TSH ####[facility] [address] [address]Dr. Cheng Dinero Creatinine [Mass/Vol] 0.96 mg/dL Normal 0.70-1.[address] [facility] Comment on above: Performed By: #### C MP, BNP, LIPID, T7, TSH ####[facility] [address] [address]Dr. Cheng Dinero EGFR-AF ZAMBIAN >60 Normal >=60 [facility] Comment on above: Performed By: #### C MP, BNP, LIPID, T7, TSH ####[facility] [address] [address]Dr. Cheng Dinero EGFR-NON AF ZAMBIAN >60 Normal >=[address] [facility] Comment on above: Performed By: #### C MP, BNP, LIPID, T7, TSH ####[facility] [address] [address]Dr. Cheng Dinero Globulin (S) [Mass/Vol] 3.0 g/dL Normal [facility] Comment on above: Performed By: #### C MP, BNP, LIPID, T7, TSH ####[facility] [address] [address]Dr. Cheng Dinero Glucose [Mass/Vol] 135 mg/dL Critically high 74-106 [facility] Comment on above: Performed By: #### C MP, BNP, LIPID, T7, TSH ####[facility] [address] [address]Dr. Cheng Dinero Potassium [Moles/Vol] 4.7 mmol/L Normal 3.5-5.[address] [facility] Comment on above: Performed By: #### C MP, BNP, LIPID, T7, TSH ####[facility] [address] [address]Dr. Cheng Dinero Protein [Mass/Vol] 6.5 g/dL Normal 6.4-8.2 [facility] Comment on above: Performed By: #### C MP, BNP, LIPID, T7, TSH ####[facility] [address] [address]Dr. Cheng Dinero Sodium [Moles/Vol] 135 mmol/L Critically low 136-145 [facility] Comment on above: Performed By: #### C MP, BNP, LIPID, T7, TSH ####[facility] [address] [address]Dr. Yikate Dinero Urea nitrogen [Mass/Vol] 30.0 mg/dL Critically high 7.0-18.[address] [facility] Comment on above: Performed By: #### C MP, BNP, LIPID, T7, TSH ####[facility] [id number] [id number]. Cheng Dinero Urea nitrogen/Creatinine [Mass ratio] 31.2 mg/mg Normal [facility] Comment on above: Performed By: #### C MP, BNP, LIPID, T7, TSH ####[facility] [id number] [place] [id number]. Cheng Dinero TSHon 04-15-2022 TSH 2.003 uIU/mL Normal 0.358-3.740 [facility] Comment on above: Performed By: #### C MP, BNP, LIPID, T7, TSH ####[facility] [id number] [id number]. Cheng Dinero VITAMIN D 25 OHon 04-15-2022 VIT D 25-OH 19.7 ng/mL Normal [facility] Comment on above: Performed By: #### P SASC, VITAD, IRON #### [facility] [address] [address] [address] Cheng Dinero VIT D RANGES SEE BELOW Normal [facility] Comment on above: Result Comment: <20 ng/mL Vit D deficient 20 - <30 ng/mL Vit D insufficient 30 - 100 ng/mL Vit D sufficient >100 ng/mL Potential Toxicity Performed By: #### P SASC, VITAD, IRON #### [facility] [address] [address] [address] Cheng Dinero Outside Colonoscopyon 2021 Outside Colonoscopy [id number]. 00CD:127 Normal [facility] Reminderson 05-01-2021 Reminders - From: Rose Mary Martinez LPN To: GSN - Clinical; Sent: 05/01/2021 10:24:02 EDT Show up: 04/02/2031 07:00:00 EST Subject: colonoscopy recall Due Date/Time: 05/01/2031 07:00:00 EDT Reminder/Recall Patient is due for screening colonoscopy 05/01/2031. [facility] Consent for Procedure/Surger yon 04-22-2021 Consent for Procedure/Surgery [id number] .[id number]:127 [facility] Pre-Certification Formon Pre-Certification Form [id number]# 1.00CD:127 [facility] Ambulatory Visit Summaryon 0 04-18-2021 Ambulatory Visit Summary ALMA MULLEN :1965 Visit Date:04/18/2021 Ambulatory Visit Instructions Your Care Team Attending Physician - CALI GUAJARDO, Sourav Phillips Primary Care Physician - Paige Renteria MD Referring Physician - Paige Renteria MD This Is Your Medications List Contact prescribing physician if questions or concerns diclofenac topical (diclofenac Top 1% gel) lisinopril (lisinopril 20 mg Tab) Procedures Performed Bone graft, History of hernia repair, Tonsillectomy and adenoidectomy, Vasectomy. Discharge Vitals Temperature (Temporal Artery) 36.3 ?C Heart Rate (Peripheral) 72 Respiratory Rate 16 Blood Pressure 124/82 Height 170.18 cm Height 170.2 cm Weight 108.9 kg Weight 108.9 kg BMI 37.6 Medications What How Much When Instructions Unchanged diclofenac topical (diclofenac Top 1% gel) 2 Gram Topical 2 times a day to affected areas Contact prescribing physician if questions or concerns Unchanged lisinopril (lisinopril 20 mg Tab) 1 Tablets By Mouth Every day Contact prescribing physician if questions or concerns Allergies No Known Allergies No Known Medication Allergies Problems Ongoing - Any problem that you are currently receiving treatment for. Astigmatism, regular BMI 37.0-37.9, adult Chronic cystitis with hematuria Chronic GERD Controlled diabetes mellitus DDD (degenerative disc disease), cervical Deficiency, protein C Diverticulitis of colon without hemorrhage Headache, migraine History of TIA (transient ischemic attack) Impingement syndrome of shoulder Internal derangement of knee Malignant essential hypertension Presbyopia Sleep apnea [facility] Historical Records Officeon 04-17-2021 Historical Records Office [id number] .[id number]:127 Normal [facility] Physician Referralon 022 Physician Referral [id number] .[id number]:127 Normal [facility] Encounters Encounter Date Encounter Type Care Provider Facility Start: 05-25-2022 End: 05-25-2022 ambulatory PAIGE HOY Facility:[facility] Start: 04-18-2022 Encounter for genera l adult medical examination without abnormal findings PAIGE HOY [facility] Start: 04-15-2022 End: 04-16-2022 ambulatory PAIGE HOY Facility:[facility] Start: 04-15-2022 End: 04-16-2022 Encounter for general adult medical examination without abnormal findings PAIGE HOY Facility:[facility] Procedures Date Procedure Procedure Detail Performing Clinician Start: 04-15-2022 PSA screening PAIGE H OY Comment on above: Performed By: #### P SASC, VITAD, IRON #### [facility] [address] [place] [address] Dr. Cheng Dinero Payers Date Payer Category Payer Unknown [id number] 1965 Unknown [id number] 1959 Unknown [id number] Clinical Note 04-20-2021 Note Date & Type Note Facility 04-20-2021 Note Chief Complaint consultation for left inguinal hernia and colonoscopy HPI Staff 55 year old male presents on consultation from Dr. Renteria for left inguinal hernia and screening colonoscopy. Denies abdominal or rectal pain. No rectal bleeding or change in bowel habits. No nausea or vomiting. No unexplained weight loss. Never had colonoscopy in the past. Reports several year history of left testicular pain. States this was evaluated by a physician years ago after US completed, report is not available at this time. History of Present Illness 55 yo male with h/o htn, sleep apnea; referred for possible LIH and colorectal screening; patient has had chronic intermittent left groin pain/testicular pain, no relationship to activity; denies bulge in area; had ED evaluation 4 years ago; had US that revealed possible small hernia with straining, small hydroceles bilaterally; patient has had a vasectomy; abdominal surgery significant for hernia repair as a child, unsure of what type of hernia; no change in bms or blood in stools; no asa, takes Diclofenac daily, no SBE prophylaxis; no previous colonoscopy; denies fmhx of GI malignancy or IBD; chews tobacco daily. Review of Systems PHQ Score Initial Depression Screen Score: 0 ROS - Provider Constitutional: no fever, no sweats, no weight loss. Eyes: no glasses, no blurred vision, no visual loss. ENMT: no dentures, no hoarseness, no swallowing difficulties, no hearing loss, no ear infection(s), no nose bleeds. Cardiovascular: normal blood pressure, no chest pain, regular heartbeat, no heart murmur. Respiratory: no shortness of breath, no cough, no asthma, no wheezing. Gastrointestinal: no nausea, no vomiting, no diarrhea, no constipation, no blood in stool, no change in bowel habits, no abdominal pain, no hepatitis. Genitourinary: no kidney stones, no urine infection, no dysuria. Musculoskeletal: yes pain, no weakness. Skin: no changing moles, no rash, no skin lumps. Neurologic: no seizures, no epilepsy, no headache. Psychiatric: no emotional or psychiatric problem. Heme/Lymph: no bleeding problems, no anemia, no blood clots, no transfusions. Allergy/Immunologic: no swollen lymph nodes/glands, no IV drug abuse. Other: Additional ROS info: Except as noted in the above Review of Systems and in the History of Present Illness, all other systems have been reviewed and are negative or noncontributory. Physical Exam Vitals & Measurements T: 36.3 ?C(Temporal Artery) HR: 72(Peripheral) RR: 16 BP: 124/82 HT: 170.18 cm HT: 170.2 cm WT: 108.9 kg WT: 108.9 kg BMI: 37.6 HEENT: normal conjunctiva, sclera clear, no scleral icterus, EOM intact, PERRLA, oral mucosa moist without lesions. Neck: trachea midline, no mass, symmetric, no thyromegaly or nodules, no adenopathy Respiratory: lungs CTA, respirations non labored. Cardiovascular: regular rate and rhythm, no murmur, no pedal edema or varicosities. Gastrointestinal: obese, soft, non distended, mild tenderness, left inguinal area; no enlargement of left external inguinal ring, no tenderness of cord structures or significant hydroceles; no palpable hernia sac no masses, no palpable hernias, diastasis recti yes, no hepatosplenomegaly; normal bs Lymphatic: no cervical adenopathy, , no inguinal adenopathy. Musculoskeletal: normal gait, digits and nails without infection, nodes, cyanosis, clubbing. Skin: no rashes, no lesions, no ulcers, no subcutaneous nodules, induration. Psychiatric/Neuro: oriented to time, place, person, judgement normal, affect appropriate for age, insight intact, no focal deficits. Tests: , x-rays reviewed, review of old records completed, Discussed surgical options, risks, and possible complications with patient. Assessment/Plan 1. Groin pain, chronic, left (R10.32: Left lower quadrant pain) no evidence of hernia on exam, likely musculoskeletal; if persists or worsens, may require pelvic ct scan. 2. Testicular pain, left (N50.812: Left testicular pain) see # 1; possibly postvasectomy pain. 3. Screening for malignant neoplasm of colon (Z12.11: Encounter for screening for malignant neoplasm of colon) plan colonoscopy under anesthesia, informed consent obtained. Other chronic pain (G89.29: Other chronic pain) Follow-up No qualifying data available Problem List/Past Medical History Ongoing Astigmatism, regular BMI 37.0-37.9, adult Chronic cystitis with hematuria Chronic GERD Controlled diabetes mellitus DDD (degenerative disc disease), cervical Deficiency, protein C Diverticulitis of colon without hemorrhage Groin pain, chronic, left Headache, migraine History of TIA (transient ischemic attack) Impingement syndrome of shoulder Internal derangement of knee Malignant essential hypertension Presbyopia Screening for malignant neoplasm of colon Sleep apnea Testicular pain, left Historical No qualifying data Procedure/Surgical History Bone graft, History of hernia repair, Tonsillectomy an (more content not included)... [facility] Comment on above: Result Comment: Elec tronically Signed By: CALI GUAJARDO, Sourav Rodriguez\Date and Time Signed: 04/20/21 09:57 EDT Summary Purpose Family History No Family History Records FoundNo Family History Records Found Advance Directives No Advanced Directives Records FoundNo Advanced Directives Records Found Additional Source Comments (unrecognized sect ion and content) No Status Records FoundNo Status Records Found INFORMATION SOURCE (unrecogn ized section and content) DATE CREATED AUTHOR 05/11/2021 Crhistiano Mays [facility] DATE CREATED AUTHOR AUTHOR'S SARAH ATMICA 05/26/2022 [facility] FOR RECORDS PERTAINING TO PATIENTS WHO ARE OR HAVE BEEN ENROLLED IN A CHEMICAL DEPENDENCY/SUBSTANCEABUSE PROGRAM, SOME INFORMATION MAY BE OMITTED. This clinical summary was aggregated from multiple sources. Caution should be exercised in using it in the provision of clinical care. This summary normalizes information from multiple sources, and as a consequence, information in this document may materially change the coding, format and clinical context of patient data. In addition, data may be omitted in some cases. CLINICAL DECISIONS SHOULD BE BASED ON THE PRIMARY CLINICAL RECORDS. [facility] [employer] [facility]. provides no warranty or guarantee of the accuracy or completeness of information in this document.
--- NOTE | 2023-03-06 20:05 | PC.NURSE ---
States neck pain for months. Hurts to turn head to left. No injury, numbness or tingling.
--- NOTE | 2023-03-06 20:13 | ED_ITS ---
HPI - Neck Pain/Injury General Chief Complaint: Neck Pain/Injury Stated Complaint: Neck Pain Time Seen by Provider: 03/06/23 20:05 Source: patient Mode of arrival: walk-in History of Present Illness HPI Narrative: Patient presents with pain in the left posterolateral neck that moved toward - but not into - the left ear about an hour prior to arrival. No associated ear pain, fever or chills. He has chronic arthritis and has been experiencing posterior neck pain for about [address] Renteria prescribed a muscle relaxer and the patient took one about 15 minutes before arrival. He denied any recent injury or activity to account for the pain. Related Data Home Medications Medication Instructions Recorded Confirmed cholecalciferol (vitamin D3) 50 50 mcg PO DAILY 03/06/23 03/06/23 mcg (2,000 unit) capsule (Vitamin D3) diclofenac sodium 75 mg 75 mg PO BID 03/06/23 03/06/23 tablet,delayed release duloxetine 60 mg capsule,delayed 60 mg PO DAILY 03/06/23 03/06/23 release glimepiride 4 mg tablet 4 mg PO DAILY 03/06/23 03/06/23 lisinopril 20 mg tablet 20 mg PO DAILY 03/06/23 03/06/23 metformin 500 mg tablet 500 mg PO BID 03/06/23 03/06/23 testosterone cypionate 200 mg/mL 100 mg IM Q14D 03/06/23 03/06/23 intramuscular oil Previous Rx's Medication Instructions Recorded nabumetone 750 mg tablet 750 mg PO BID neck pain #14 tabs 03/06/23 Allergies Allergy/AdvReac Type Severity Reaction Status Date / Time No Known Drug Allergies Allergy Verified 12/06/22 10:54 [facility] Medical History (Updated 03/06/23 @ 20:20 by Andrwe Calle) Low testosterone ?R79.89 - Other specified abnormal findings of blood chemistry (ICD-10) Arthritis ?M19.90 - Unspecified osteoarthritis, unspecified site (ICD-10) Hypertension ?I10 - Essential (primary) hypertension (ICD-10) Diabetes ?E11.9 - Type 2 diabetes mellitus without complications (ICD-10) Social History Smoking status: Light tobacco smoker Exam Narrative Exam Narrative: Nurses notes and vital signs reviewed and patient is not hypoxic. afebrile General: Well-appearing and in no apparent distress. Skin: Warm, dry, no pallor noted. No rash. Head: Normocephalic, atraumatic. Neck: Supple, no cervical lymphadenopathy. Left posterolateral soft tissue tenderness without palpable mass or abscess. No skin change in the affected area. Eye: Pupils are equal, round and EOMI. No scleral icterus. Ears, Nose, Mouth, and Throat: Oral mucosa is moist Cardiovascular: Regular Rate and Rhythm without murmur, gallop or rub. Respiratory: No accessory muscle use or respiratory distress. Lungs are clear to auscultation, no wheezing, rales or rhonchi Back: No midline thoracic or lumbar vertebral tenderness. No left trapezius tenderness Musculoskeletal: normal UE ROM Neurological: A&O x4. No cranial nerve dysfunction observed. No truncal ataxia. Moves all extremities. Sensation intact. Psychiatric: Cooperative and interactive. Normal mood and affect. Constitutional Vital Signs, click to edit/add: Last Vital Signs Temp 98.8 F 03/06/23 20:01 Pulse 84 03/06/23 20:01 Resp 18 03/06/23 20:01 BP 134/87 03/06/23 20:01 Pulse Ox 96 03/06/23 20:01 O2 Del Method Room Air 03/06/23 20:01 Course Vital Signs Vital signs: Vital Signs Temperature 98.8 F 03/06/23 20:01 Pulse Rate 84 03/06/23 20:01 Respiratory Rate 18 03/06/23 20:01 Blood Pressure 134/87 03/06/23 20:01 Pulse Oximetry 96 03/06/23 20:01 Oxygen Delivery Method Room Air 03/06/23 20:01 Temperature 98.8 F 03/06/23 20:01 Pulse Rate 84 03/06/23 20:01 Respiratory Rate 18 03/06/23 20:01 Blood Pressure 134/87 03/06/23 20:01 Pulse Oximetry 96 03/06/23 20:01 Oxygen Delivery Method Room Air 03/06/23 20:01 MDM - Neck Pain/Injury MDM Narrative Medical decision making narrative: Patient's exam is consistent with soft tissue strain of the musculature of the posterolateral left neck - no indication for bony imaging. Patient received IM Solu-Medrol and IM Toradol before discharge. I prescribed Relafen for him to take at home. He says that he sporadically uses the diclofenac and I told him to hold off on that while taking the Relafen. He will follow-up with his primary care physician, Dr. Renteria. Discharge Plan Discharge Chief Complaint: Neck Pain/Injury Clinical Impression: Acute cervical myofascial strain Patient Disposition: Home, Self-Care Time of Disposition Decision: 20:19 Prescriptions / Home Meds: New nabumetone 750 mg tablet 750 mg PO BID Qty: 14 0RF No Action cholecalciferol (vitamin D3) [Vitamin D3] 50 mcg (2,000 unit) capsule 50 mcg PO DAILY diclofenac sodium 75 mg tablet,delayed release (DR/EC) 75 mg PO BID duloxetine 60 mg capsule,delayed release(DR/EC) 60 mg PO DAILY glimepiride 4 mg tablet 4 mg PO DAILY lisinopril 20 mg tablet 20 mg PO DAILY metformin 500 mg tablet 500 mg PO BID testosterone cypionate 200 mg/mL oil 100 mg IM Q14D Instructions: Cervical Strain (ED), Chronic Neck Pain (DC) Stand Alone Forms: Portal Instructions Referrals: Feliciano Renteria MD [Primary Care Provider] - 1 week
[2023-03-06] MEDS: METHYLPREDNISOLONE SOD SUCC PF 125 MG/2 ML VIAL IM (20:37)
[2023-03-06] MEDS: KETOROLAC TROMETHAMINE 60 MG/2 ML VIAL IM (20:37)
== END 2023-03-06 20:49 | disposition home or self-care (01) ==
PROVIDERS: Emergency Provider Emergency Medicine; PCP Family Medicine
DX: S16.1XXA Strain of muscle, fascia and tendon at neck level, initial encounter (principal); E11.9 Type 2 diabetes mellitus without complications; I10 Essential (primary) hypertension; M19.90 Unspecified osteoarthritis, unspecified site; Z79.899 Other long term (current) drug therapy; Z79.84 Long term (current) use of oral hypoglycemic drugs; F17.210 Nicotine dependence, cigarettes, uncomplicated; X58.XXXA Exposure to other specified factors, initial encounter
CPT/HCPCS: 96372; 99284; J1885; J2930

== ENCOUNTER 2023-04-20 08:28 | Outpatient (OUT) | payer SELFPAY ==
[2023-04-21 04:07] LABS: Testosterone 148 ng/dL (264-916)
== END 2023-04-20 08:29 | disposition home or self-care (01) ==
LOC: LAB 08:31
PROVIDERS: PCP Family Medicine; Visit Provider Family Medicine
DX: E29.1 Testicular hypofunction (principal)
CPT/HCPCS: 36415; 84403